=== PATIENT | female | born 1990 | race Caucasian/White ===

== ENCOUNTER 2018-03-02 18:29 | Emergency (ER) | payer OTHER ==
[2018-03-02 20:01] LABS: URINE BLOOD (Dip) POC 3+ (NEGATIVE); URINE GLUCOSE (Dip) POC Negative (NEGATIVE); URINE KETONES (Dip) POC Negative (NEGATIVE); URINE LEUKOCYTE EST (Dip) POC Trace (NEGATIVE); URINE NITRITE (Dip) POC Negative (NEGATIVE); URINE TOTAL PROTEIN POC 1+ (NEGATIVE)
[2018-03-02] MEDS: KETOROLAC 30 MG INJ IM (20:04)
== END 2018-03-02 20:43 | disposition home or self-care (01) ==
LOC: FTE 18:29
DX: H60.91 Unspecified otitis externa, right ear (principal)
CPT/HCPCS: 81003; 96372; 99284-25

== ENCOUNTER 2018-03-03 13:09 | Emergency (ER) | payer OTHER | END 2018-03-03 17:15 | disposition home or self-care (01) | LOC: FTE 13:09 | DX: H60.91 Unspecified otitis externa, right ear (principal) | CPT/HCPCS: 99284 ==